=== PATIENT | female | born 1970 | race Caucasian/White ===

== ENCOUNTER → 2021-03-04 | Outpatient (CLI) | payer OTHER ==
[2021-03-04 11:15] LABS: Basophils % (A) 1 %; Eosinophils # (A) 0.1 k/uL (0-0.7); Eosinophils % (A) 2 %; HCT 38.6 % (34.0-46.0); HGB 12.7 gm/dL (11.4-16.0); Lymphocytes # (A) 1.5 k/uL (1.0-4.8); Lymphocytes % (A) 29 %; MCH 29.9 pg (25.0-35.0); MCHC 32.9 g/dL (31.0-37.0); MCV 90.8 fL (80.0-100.0); Mean Platelet Volume 7.9; Monocytes # (A) 0.4 k/uL (0-1.0); Monocytes % (A) 8 %; Neutrophils % (A) 59 %; Platelet Count 287 k/uL (150-450); RBC 4.25 m/uL (3.80-5.40); RDW 12.5 % (11.5-15.5); WBC 5.2 k/uL (3.8-10.6)
[2021-03-04 11:35] LABS: African American GFR (CKD) >90 (>60 ml/min/1.73 sqM); Anion Gap 5 mmol/L; Blood Urea Nitrogen 7 mg/dL (7-17); Carbon Dioxide 30 mmol/L (22-30); Chloride 104 mmol/L (98-107); Glucose 81 mg/dL (74-99); Magnesium 1.9 mg/dL (1.6-2.3); Non-African American GFR(CKD) >90 (>60 ml/min/1.73 sqM); Potassium 4.1 mmol/L (3.5-5.1); Sodium 139 mmol/L (137-145)
[2021-03-04 11:47] LABS: Appearance,Urine Clear (Clear); Bilirubin,Urine Negative (Negative); Blood,Urine Negative (Negative); Color,Urine Light Yellow; Glucose,Urine (UA) Negative (Negative); Ketones,Urine Negative (Negative); Leukocyte Esterase,Urine Negative (Negative); Nitrite,Urine Negative (Negative); PH, Urine 6.5 (5.0-8.0); Protein,Urine Negative (Negative); Specific Gravity,Urine 1.004 (1.001-1.035); Urobilinogen,Urine <2.0 mg/dL (<2.0)
== END | disposition home or self-care (01) ==
LOC: LABPAT 10:30
PROVIDERS: ATTEND Obstetrics & Gynecology
DX: Z01.812 Encounter for preprocedural laboratory examination (principal); N81.6 Rectocele; N81.4 Uterovaginal prolapse, unspecified
CPT/HCPCS: 80051; 81003; 82565; 82947; 83735; 84520; 85025; 87086

== ENCOUNTER 2021-03-14 05:57 | Observation (INO) | payer OTHER ==
[2021-03-09 09:27] VITALS: BMI 21.8
--- NOTE | 2021-03-10 15:04 | HP ---
HISTORY AND PHYSICAL History and physical for surgery on March 14. This is a 50-year-old female who presented from Dr. Cassidy's office with a history of golf ball size bulge from the perineal body, urinary leakage, vaginal tissue irritation, having to splint the perineal body to evacuate her bowels. Surgery is planned with Dr. Cassidy and ASSISTANT PARALEGAL consultation is requested for possible uterine removal. The patient states she has very irregular menses. She has had a tubal ligation. She denies dyspareunia. PAST MEDICAL HISTORY: Significant for irritable bowel syndrome. PRIMARY CARE PHYSICIAN: Dr. Brantley. PAST SURGICAL HISTORY: section 1989, tubal ligation 2002. CURRENT MEDICATIONS: 1. Alprazolam 0.25 mg t.i.d. p.r.n. 2. Citalopram 40 mg once daily. 3. Fish oil 1000 mg daily. 4. Magnesium 30 mg once daily. 5. Metronidazole 500 mg p.r.n. infections. 6. Multivitamin capsule daily. 7. Probiotic daily. 8. Vitamin B6, Vitamin B12, Vitamin C and Vitamin D orally daily. ALLERGIES: None known. FAMILY HISTORY: Significant for hypertension, thyroid disorder, and ADHD. REPRODUCTIVE HISTORY: section in 1989, followed by 2 vaginal deliveries in 1994 and 2002. SOCIAL HISTORY: Patient is a medical office representative. She drinks 2-4 cups of coffee daily. She denies alcohol, tobacco, or drug use. PHYSICAL EXAMINATION: On examination, patient is 5 feet 3.5 inches, 128 pounds, BMI 22, pulse 75, blood pressure 90/52. HEENT exam reveals good dentition, no thyromegaly, no cervical lymphadenopathy. Trachea midline. Chest is clear to auscultation in all brannon anteriorly and posteriorly. Cardiac exam reveals regular rate and rhythm with no murmur, click, or rub. Breasts are bilaterally symmetric to inspection with no skin dimpling, nipple discharge, deformities, or discernible lesions or masses. Abdomen is soft, scaphoid, no rigidity, active bowel sounds. No CVA tenderness. Extremities reveal no edema, good peripheral pulses, normal range of motion. On genitourinary examination, the external genitalia are normal in inspection. There is a grade 2-3 cystocele present, a grade 2-3 uterine prolapse, as well as a grade 3 rectocele noted. Adnexa are negative to palpation. Rectal exam reveals good sphincter tone, no hemorrhoids, no rectal masses. FIT negative stool present on the glove. IMPRESSION: Uterine prolapse, cystocele with rectocele, in combination with genuine stress urinary incontinence. PLAN: I have discussed with the patient that it is certainly reasonable to proceed with vaginal hysterectomy, anterior and posterior colporrhaphies. The patient consented to bilateral salpingo-oophorectomy only if the ovaries appear abnormal to inspection. The option to maintain the uterus in situ is reviewed, patient would like it removed. Risks of bleeding, infection, perforation or damage to bowel, bladder, ureters, blood vessels or indeed any pelvic or abdominal organs has been discussed. Risk of anesthesia, aspiration, nerve damage, or any other untoward defect is also reviewed. All questions answered. The [employer] pamphlet on this procedure have been given to the patient and reviewed in detail. I believe she understands our discussion with no further reservation. MMODL / IJN: [id number] /
[2021-03-14] MEDS ORDERED: LACTATED RINGERS 1,000 ML IV ONE ×2 (06:20)
[2021-03-14] MEDS ORDERED: ONDANSETRON 4 MG/2 ML VIAL ONE (06:45)
[2021-03-14] MEDS ORDERED: LIDOCAINE 1% (10MG/ML) FOR IV START INTRADERMA ONE (07:00)
[2021-03-14] MEDS ORDERED: ONDANSETRON 4 MG/2 ML VIAL IVP ONE (07:05)
[2021-03-14] MEDS ORDERED: DEXAMETHASONE SOD PHOS (MDV) 100 MG/10 ML VIAL IVP ONE (07:05)
[2021-03-14] MEDS ORDERED: MIDAZOLAM 2 MG/2 ML VIAL IVP ONE (07:14)
[2021-03-14] MEDS ORDERED: VASOPRESSIN 20 UNIT in SODIUM CHLORIDE 0.9% 60 ML IM ONE (07:43)
[2021-03-14] MEDS ORDERED: GENTAMICIN 80 MG in SODIUM CHLORIDE 0.9% 500 ML 500 ML IRRIGATION ONE (07:43)
[2021-03-14] MEDS ORDERED: BACITRACIN ZINC 500 UNIT/GM OINT 28.4 GM TUBE TOPICAL ONE (09:07)
[2021-03-14] MEDS ORDERED: ONDANSETRON 4 MG/2 ML VIAL IVP PRN (09:11)
[2021-03-14] MEDS ORDERED: METOCLOPRAMIDE 5 MG/ML 2 ML VIAL IVP PRN (09:11)
[2021-03-14] MEDS ORDERED: IBUPROFEN 600 MG TAB PO PRN (09:11)
--- NOTE | 2021-03-14 09:11 | P.OP ---
Date of Procedure: 03/14/21 Preoperative Diagnosis: Symptomatic uterine prolapse, cystocele, rectocele, genuine stress urinary incontinence Postoperative Diagnosis: Same, normal-appearing ovaries bilaterally Procedure(s) Performed: Vaginal hysterectomy, anterior and posterior colporrhaphy's Anesthesia: YANELYA Surgeon: Oriana Ramsey Naval Architect #1: Nima Portillo Estimated Blood Loss (ml): 100 IV fluids (ml): 600 Urine output (ml): 200 Pathology: other (Cervix and uterus) Condition: stable Disposition: PACU Operative Findings: Normal-appearing ovaries bilaterally Description of Procedure: Patient is brought to the operating suite where a general anesthetic is administered after the spinal with Duramorph placed in the preoperative area. Antibiotics are given. Beta hCG is negative. The appropriate timeout was performed to assure proper patient and procedural identification. Patient is placed in the dorsal lithotomy position. The cervix, vagina, perineal body and lower abdomen are all prepped and draped in usual sterile fashion. Bladder is drained for 200 mL of clear yellow urine. Weighted speculum was placed into the vagina. Anterior lip of the cervix is grasped with a double-tooth tenaculum. Cervix is injected circumferentially with a dilute Pitressin solution. A [place] blade scalpel is used and the mucosa is incised circumferentially with a V positioning at 6:00. Sponge is used to hold the mucosa from the underlying fascial planes. At all times the mucosa is swept well from the operative field to avoid bladder and/or ureteral injury. Peritoneum is entered at 6:00 with a Metzenbaum scissor, suture tied with 2-0 Vicryl, and held with a hemostat. The large billed speculum is then placed into the peritoneal cavity. The right uterosacral ligament is identified, clamped cut and suture ligated. It is held laterally with a hemostat. Same procedure is carried out contralaterally. Uterine vasculature is skeletonized, clamped cut and suture ligated. Please note that 0 Vicryl sutures used for the entire hysterectomy portion of this procedure. 2 additional pedicles are taken superior to the vessels. The peritoneum is entered at 12:00 with a Metzenbaum scissor gently. The uterus is then "walked out" posteriorly. The remaining pedicles are grasped with José Miguel clamps, clamped cut and suture tied. Sponge stick is used, both ovaries appear normal to inspection and therefore are left in situ per the patient's wishes. All pedicles are hemostatically intact, clean and dry. The 2-0 Vicryl suture used at 6:00 is then brought around in a pursestring fashion to close the peritoneum. The uterosacral cardinal ligaments are brought across to incorporate the opposite ligament as well as vaginal mucosa to close the vaginal cough. 2 additional [id number]-ef-spvae sutures of 0 Vicryl are used on the vaginal cuff for complete closure. Allis clamps are used in the remaining portion superiorly. The tissue is brought down in the midline. It is injected with dilute Pitressin solution and a plane is formed. Metzenbaum scissors are used in the midline under the mucosa to skeletonize from the underlying fascial plane. The edges are held with Allis clamps and a fanlike fashion. A sponge rolled finger is used to separate the fascia from the overlying mucosa. [place] catheter is placed in the urine is clear. Fascia is brought together in an interrupted fashion thereby completely reducing the cystocele. Metzenbaum scissors are used to trim the redundant mucosa. The anterior vaginal mucosa is then closed with a 2-0 Vicryl suture in a pursestring fashion, bleeding access for the upcoming sling procedure per her urologist. At this time a triangular portion of tissue is removed from the perineal body. The posterior vaginal mucosa is injected with the same dilute Pitressin solution in the midline. Metzenbaum scissors are used to undermine the mucosa, the mucosa is incised to the apex of the defects, the edges held with Allis clamps and a fanlike fashion. Sponge rolled finger is used to sweep the mucosa off of the underlying fascia. 2-0 Vicryl sutures used in an interrupted fashion to bring the fascial edges together, thereby completely reducing the rectocele. Metzenbaum scissors are used to trim the redundant mucosa. 2-0 Vicryl is used in a running locking fashion to close the posterior defect. The repair is completed in an episiotomy-like fashion. Vagina is clean and dry. All sponge needle and enhancement counts are correct. Dr. Carlson are then entered the room to perform the urologic portion of the procedure. Patient's blood pressure is 97/57, pulse 69, 100% O2 saturation upon completion of my portion of the case. Please see separate dictation for the urologic portion of this procedure.
[2021-03-14] MEDS: LACTATED RINGERS 1,000 ML IV ONE ×2 (09:20→20:14)
--- NOTE | 2021-03-14 09:51 | P.OP ---
Date of Procedure: 03/14/21 Preoperative Diagnosis: Stress Urinary Incontinence Postoperative Diagnosis: same Procedure(s) Performed: Cystoscopy, Transobturator sling Implants: Obtyrux Mesh Sling Anesthesia: YANELYA Surgeon: Fortino Cassidy Estimated Blood Loss (ml): 50 Pathology: none sent Condition: stable Disposition: PACU Indications for Procedure: Ms Varner is a 50 year-old female with history of stress urinary incontinence, and a Pelvic organ prolapse . Discussed with her the option of Kegel exercises versus surgical intervention. She agreed to proceed with pelvic organ prolapse repair and a trans-obturator sling. Discussed with her the option of doing a trans-obturator sling, discussed that we would be using mesh for this procedure. Discussed with her the risk which includes but not limited to bleeding, infection, mesh erosion to the bladder, the urethra, and the vagina. Discussed the risk of persistent urinary incontinence after sling placement. Discussed the potential of urinary retention. She understood all the risk and agreed to proceed, her prolapse repair would be performed by Dr Ramsey Operative Findings: Uncomplicated trans obturator sling placement Description of Procedure: The patient was taken to the operating room and placed in the dorsal lithotomy position. Initially the cystocele dissection was performed by Dr. Ramsey, please see her operative note for that portion of the dictation. S59-[id number] [place] catheter was placed. The scalpel was used to make bilateral groin incisions at the level of the clitoris. Subcutaneous tissues were spread with a hemostat. Each of the helical needles were passed through the respective groin incision, and turned such that the needle tip wrapped around the pubis. The needle tips were guided digitally into the vaginal incision. The Obtryx graft, which had been previously soaked in antibiotic solution, was secured to the needle tips in the standard fashion. The needles were then withdrawn, and the position of the graft was adjusted such that it overlie the mid urethra, as desired. With a hemostat placed between the graft and the urethra to prevent tension of the graft over the urethra, the plastic sheath was removed from the ends of the graft. Cystoscopy was performed using 17 Fr sheath should no evidence of mesh erosion, and otherwise a normal bladder, clear reflux was seen from both ureteral orifices. The ends of the graft were cut beneath the skin incisions, and these incisions were closed using 4-0 Vicryl suture in a subcuticular fashion, . Vaginal incision was closed with 2-0 Vicryl. Kerlix vaginal packing was placed. Patient was awakened from anesthesia and taken to recovery in stable condition
[2021-03-14] MEDS: diphenhydrAMINE 50 MG/ML 1 ML VIAL IVP PRN ×2 (10:28→20:31)
[2021-03-14] MEDS: KETOROLAC 15 MG/ML 1 ML VIAL IVP PRN ×2 (11:25→18:37)
[2021-03-15] MEDS: SENNOSIDES-DOCUSATE SODIUM 1 EACH TAB PO SCH ×2 (00:40→07:59)
[2021-03-15] MEDS: KETOROLAC 15 MG/ML 1 ML VIAL IVP PRN ×2 (00:41→07:03)
[2021-03-15 02:20] VITALS: RESP 16
[2021-03-15] MEDS ORDERED: MORPHINE SULFATE (PF) 0.3 MG/0.3 ML SYR ONE (07:29)
[2021-03-15] MEDS ORDERED: PROPOFOL 10 MG/ML 20 ML VIAL IV ONE (07:29)
[2021-03-15] MEDS ORDERED: fentaNYL (PF) 50 MCG/ML 2 ML AMP ONE (07:29)
[2021-03-15] MEDS ORDERED: LIDOCAINE 1% INJ 10MG/ML (20 ML MDV) ONE (07:29)
[2021-03-15] MEDS ORDERED: ROCURONIUM 10 MG/ML (5 ML VIAL) IV ONE (07:29)
[2021-03-15] MEDS ORDERED: GLYCOPYRROLATE 0.2 MG/ML 2 ML VIAL ONE (07:29)
[2021-03-15] MEDS ORDERED: NEOSTIGMINE 1 MG/ML 10 ML VIAL ONE (07:29)
[2021-03-15] MEDS ORDERED: SUCCINYLCHOLINE CHLORIDE 100 MG/5 ML SYR IV ONE (07:29)
[2021-03-15] MEDS ORDERED: diphenhydrAMINE 50 MG/ML 1 ML VIAL ONE (07:29)
[2021-03-15] MEDS ORDERED: PHENYLEPHRINE-0.9% NACL SYG 1,000 MCG/10 ML SYRINGE ONE (07:29)
[2021-03-15 08:23] VITALS: BP 82/53; PULSE 61; TEMP 97.8
--- NOTE | 2021-03-15 09:14 | P.ANPRN ---
Procedure Note - Anesthesia - Epidural/Spinal Spinal Time Out Performed: Yes Date of Procedure: 03/14/21 Procedure Start Time: 07:13 Procedure Stop Time: 07:15 Location of Patient: PreOp Indication: Acute Post-Operative Pain, Requested by Surgeon Sedation Type: Sedate with meaningful contact maintained Preparation: Sterile Prep Position: Sitting Needle Guage: 25 Blood Aspirated: No Pain Paresthesia on Injection Noted: No Events: Uneventful and Well Tolerated (duramrph 300 mics plus fentanyl 25 mics)
--- NOTE | 2021-03-15 09:18 | P.PN ---
Progress Note - Text 03/15/21 640am Female status post vaginal hysterectomy by Dr. Schaefer were. Patient had a spinal Duramorph for postop pain control, patient seen and evaluated this morning, patient has a VAS of 2. Patient does have complains of pruritus which is better this morning.
--- NOTE | 2021-03-15 09:28 | P.DS ---
Providers Date of admission: 03/15/21 01:51 Expected date of discharge: 03/15/21 Attending physician: Oriana Ramsey Primary care physician: Raquel Brantley [facility] Course: This is a 49-year-old female admitted with increasingly symptomatic uterine prolapse, cystocele and rectocele, and genuine stress urinary incontinence. She elected to proceed with surgical repair. Please see admitting history and physical for details. Yesterday the patient underwent vaginal hysterectomy, anterior and posterior colporrhaphy, sling procedure and cystoscopy. She did well intraoperatively, ovaries left in situ per patient's wishes. Vagina was packed with iodoform gauze and basic tracing. [place] catheter placed to direct drainage. Please see separately dictated operative note for details. This morning the patient is doing well. She is passing flatus, ambulating, [place] catheter and vaginal packing had been removed. We are awaiting spontaneous void. Pending normal post void residual patient will be discharged home later today. She is judged be in very good condition for discharge home. She will follow-up with me in the office in 2 weeks. She is reminded no intercourse, tampons or douching. She will continue to use her Motrin or Advil as needed for pain. She will call with any fevers shakes or chills, foul smelling or copious vaginal drainage, with any pain not alleviated by Advil or Aleve or ibuprofen, or indeed with any difficulties or concerns. She is reminded no heavy lifting, no driving for 2 weeks. Assessment: Doing well postoperative day #1 Patient Condition at Discharge: Good Plan - Discharge Summary Discharge Rx Participant: No New Discharge Prescriptions: No Action ALPRAZolam [Xanax] 0.25 mg PO BID PRN PRN Reason: Anxiety Citalopram Hydrobromide [CeleXA] 40 mg PO DAILY Discharge Medication List ALPRAZolam [Xanax] 0.25 mg PO BID PRN 03/08/21 [History] Citalopram Hydrobromide [CeleXA] 40 mg PO DAILY 03/08/21 [History] Follow up Appointment(s)/Referral(s): Oriana Ramsey MD [STAFF PHYSICIAN] - 2 Weeks Discharge Disposition: HOME SELF-CARE
== END 2021-03-15 14:24 | disposition home or self-care (01) ==
LOC: OR 05:57 → 4FBP 10:02 → OR 03-15 01:51
PROVIDERS: ADMIT Obstetrics & Gynecology; ATTEND Obstetrics & Gynecology
DX: N81.4 Uterovaginal prolapse, unspecified (principal); N39.3 Stress incontinence (female) (male); N92.6 Irregular menstruation, unspecified; L29.9 Pruritus, unspecified; F41.9 Anxiety disorder, unspecified; F32.9 Major depressive disorder, single episode, unspecified; Z20.822 Contact with and (suspected) exposure to COVID-19; Z98.51 Tubal ligation status; Z79.899 Other long term (current) drug therapy; Z81.8 Family history of other mental and behavioral disorders; Z83.49 Family history of other endocrine, nutritional and metabolic diseases; Z82.49 Family history of ischemic heart disease and other diseases of the circulatory system; Z98.891 History of uterine scar from previous surgery; Z76.89 Persons encountering health services in other specified circumstances; Z81.3 Family history of other psychoactive substance abuse and dependence
CPT/HCPCS: 58260; 57260; 57288; 81025; 87635; G0378; C1771; J2250; J1200; J1580; J0690; J2405; J1100; J1885 ×2; 86850; 86900; 86901; 88305

== ENCOUNTER 2023-07-06 08:25 | Day surgery (SDC) | payer OTHER ==
[2023-07-06] MEDS ORDERED: LIDOCAINE 1% (10MG/ML) FOR IV START INTRADERMA PRN (08:48)
[2023-07-06] MEDS ORDERED: LACTATED RINGERS 1,000 ML IV SCH (08:48)
[2023-07-06] MEDS ORDERED: ONDANSETRON 4 MG/2 ML VIAL IVP PRN (08:48)
[2023-07-06 09:08] VITALS: RESP 16; TEMP 97.7
[2023-07-06] MEDS ORDERED: PROPOFOL 10 MG/ML 20 ML VIAL IV ONE (09:21)
--- NOTE | 2023-07-06 09:36 | P.PCN ---
Date of Procedure: 07/06/23 Procedure(s) Performed: BRIEF HISTORY: Patient is a 52-year-old, pleasant, white female scheduled for an upper endoscopy as a part of evaluation of positive serology for celiac disease. Patient has been having chronic intermittent diarrhea for the last several years duration. PROCEDURE PERFORMED: Esophagogastroduodenoscopy with bioposy PREOPERATIVE DIAGNOSIS: Chronic intermittent diarrhea and positive serology for celiac disease IV sedation per anesthesia. PROCEDURE: After informed consent was obtained, the patient was brought into the endoscopy unit. IV sedation was administered by Anesthesia under continuous monitoring. Initially the Olympus GIF-140 video endoscope was inserted into the mouth. Esophagus intubated without any difficulty. It was gradually advanced into the stomach and duodenum and carefully examined. The bulb and the second part of the duodenum had changes suspicious for celiac disease and multiple biopsies were done from this area. There was decreased duodenal folds with patchy areas of atrophy noted in the second part of the duodenum. The scope at this time was withdrawn to the stomach, adequately insufflated with air, and upon careful examination, mucosa of the antrum, body, cardia and the fundus appeared normal. The scope was then withdrawn into the esophagus.small hiatal hernia noted. The GE junction was located at 39 cm from the incisors. The esophagus appeared normal. There were no erosions or ulcerations seen and the patient tolerated the procedure well. IMPRESSION: 1. Decrease duodenal folds with air to keep crit appearing mucosa suspicious for celiac disease status post multiple biopsies. 2. Small hiatal hernia. RECOMMENDATIONS: The findings of this examination were discussed with the patient as well as her family. She was advised to follow with the biopsy results. She will be seen in office in 2 weeks.
[2023-07-06 09:59] VITALS: BP 92/64; PULSE 70
== END 2023-07-06 10:20 | disposition home or self-care (01) ==
LOC: ORWHC2ENDO 08:25
PROVIDERS: ATTEND Internal Medicine Gastroenterology
DX: K29.80 Duodenitis without bleeding (principal); K44.9 Diaphragmatic hernia without obstruction or gangrene; F32.A Depression, unspecified; F41.9 Anxiety disorder, unspecified; Z79.899 Other long term (current) drug therapy; Z98.890 Other specified postprocedural states
CPT/HCPCS: 88305; 43239; J2704

== ENCOUNTER 2024-09-30 07:12 | Day surgery (SDC) | payer OTHER ==
[2024-09-29 08:52] VITALS: BMI 28.1
[~2024-09-30 07:12] MED LIST: HYDROmorphone 0.5 MG/0.5 ML SYRINGE IVP PRN; LIDOCAINE 1% (10MG/ML) FOR IV START INTRADERMA PRN; MIDAZOLAM 2 MG/2 ML VIAL IV PRN; fentaNYL (PF) 50 MCG/ML 2 ML AMP IVP PRN
[2024-09-30] MEDS: LACTATED RINGERS 1,000 ML IV SCH (07:39)
[2024-09-30] MEDS: IV FLUID CONTINUATION 1,000 ML IV ONE (07:39)
[2024-09-30] MEDS: ACETAMINOPHEN TAB 500 MG TAB PO PRN (07:43)
[2024-09-30] MEDS: ONDANSETRON 4 MG/2 ML VIAL IVP ONE (07:45)
[2024-09-30] MEDS: DEXAMETHASONE SOD PHOSPHATE 4 MG/ML 1 ML VIAL IV ONE (07:45)
[2024-09-30] MEDS: HEPARIN SODIUM,PORCINE 5,000 UNIT/ML 1 ML VIAL SQ PRN (07:45)
[2024-09-30] MEDS ORDERED: PROPOFOL 10 MG/ML 20 ML VIAL IV ONE (09:12)
[2024-09-30] MEDS ORDERED: fentaNYL (PF) 50 MCG/ML 2 ML AMP ONE (09:12)
[2024-09-30] MEDS ORDERED: SUCCINYLCHOLINE CHLORIDE 200 MG/10 ML VIAL IV ONE (09:12)
[2024-09-30] MEDS ORDERED: MIDAZOLAM 2 MG/2 ML VIAL ONE (09:12)
[2024-09-30] MEDS ORDERED: PHENYLEPHRINE-0.9% NACL SYG 1,000 MCG/10 ML SYRINGE ONE (09:12)
[2024-09-30] MEDS ORDERED: GLYCOPYRROLATE 0.2 MG/ML 2 ML VIAL ONE (09:12)
[2024-09-30] MEDS: metroNIDAZOLE-NS PMX 500 MG in SALINE 1 100ML.BAG IVPB PRN (09:15)
[2024-09-30] MEDS: LIDOCAINE 1%-EPI 1:100,000 20 ML VIAL SQ ONE (09:40)
--- NOTE | 2024-09-30 09:53 | P.OP ---
Date of Procedure: 09/30/24 Preoperative Diagnosis: Pilonidal cyst Postoperative Diagnosis: Final cyst Procedure(s) Performed: Excision of pilonidal cyst Anesthesia: SUNITA Surgeon: Aly Chawla Estimated Blood Loss (ml): 5 Pathology: other (Pilonidal cyst) Condition: stable Disposition: PACU Description of Procedure: Patient placed on the op table in the prone position after receiving general anesthesia. The area of the pilonidal cyst was prepped and draped you sterile fashion. A chronic scar could be seen over the pilonidal cyst. Using a 15 blade elliptical skin incision made around the pilonidal cyst and then using electrocautery, excision of the bilateral cystectomy was performed. The Bovie used hemostasis. The specimen to pathology. The wound was packed with Kerlix. Patient tolerated well. She was sent to recovery in stable condition.
[2024-09-30 10:04] VITALS: TEMP 97.2
[2024-09-30 11:33] VITALS: BP 117/76; PULSE 83; RESP 18
== END 2024-09-30 12:29 | disposition home health service (06) ==
LOC: OR 07:12
PROVIDERS: ATTEND Surgery
DX: L05.91 Pilonidal cyst without abscess (principal); K90.0 Celiac disease; F32.A Depression, unspecified; Z79.899 Other long term (current) drug therapy
CPT/HCPCS: 11770; J2250; J0330; J1644; J1100; J0690; J2405; J3010; J2704; J2371; J1836; J1596; 88304